=== PATIENT | female | born 1990 | race Caucasian/White ===

== ENCOUNTER 2024-04-05 08:41 | Emergency (ER) | payer OTHER, SELFPAY ==
[2024-04-05 08:43] VITALS: BP 112/77
--- NOTE | 2024-04-05 09:23 | ED.GENMED ---
History of Present Illness
<Richa Loredo PA-C - Last Filed: 04/05/24 18:29>
General
Chief Complaint: Throat Problem
Source: patient and family (Mom at bedside)
Exam Limitations: none
Time Seen by Provider: 04/05/24 09:04
Nursing documentation reviewed up to this point in time: agreed with
History of Present Illness
History of Present Illness:
Patient is a 33 year old female presenting to the emergency department for evaluation of painful swallowing.. Patient states that last Thursday she started with a sore throat and intermittent fevers. She was seen in an urgent care this past
Thursday where she had both a negative COVID and strep test and started on oral prednisone. Sore throat has mainly improved but starting on Thursday she began with a burning sensation in her esophagus with swallowing. Patient does report that she
only notices this pain when she is swallowing and not at rest. Patient states that this has been associated with intermittent nausea but no vomiting. Patient stopped taking the prednisone due to the chest discomfort.
Patient denies any associated headache, neck pain, or abdominal pain. Patient states that she has been unable to eat or drink much over the past few days due to the discomfort. Patient denies any fevers or chills.
Review of Systems
<Richa Loredo PA-C - Last Filed: 04/05/24 18:29>
Review of Systems
Allergies reviewed?: Yes
All Other Systems: ROS reviewed and negative except as documented in HPI and ROS
Phy Exam
<Richa Loredo PA-C - Last Filed: 04/05/24 18:29>
Physical Exam
Physical Exam:
Vitals: Patient's vital signs are stable. Afebrile
General: Patient is well appearing, no acute distress. Nontoxic appearing
Skin: Warm and dry, no rashes or lesions
Head: Normocephalic, atraumatic
Eyes: Sclera nonicteric. EOMs intact. No nystagmus.
Throat: Posterior pharynx mildly erythematous without any tonsillar edema or exudates. Uvula midline. Protecting airway. Speech normal.
Neck: Palpable mobile cervical lymphadenopathy. Normal ROM, no cervical spine tenderness, no meningismus. No tenderness to neck. No crepitus
Cardiac: Regular rate and rhythm, no murmurs.
Pulm: Normal respiratory effort, no wheezes, rales, rhonchi heard on exam.
Abdomen: Abdomen soft. No abdominal tenderness.
Extremities: No evidence of cyanosis or edema. Great distal pulses
Neuro: AAOx3. CN II-XII intact. No focal neurologic deficits.
Psychiatric: Normal affect.
Course
<Richa Loredo PA-C - Last Filed: 04/05/24 18:29>
Orders/Labs/Results
Orders:
Orders
04/05/24 09:34
0.9% Sodium Chloride 1000 ml [Nss] 1,000 ml IV BOLUS
Ketorolac [Toradol] 15 mg IV NOW STA
Ondansetron Injectable [Zofran] 4 mg IV NOW STA
04/05/24 09:35
Test Result ONCE
04/05/24 09:36
CR Chest - 2 Views Urgent
Comment:
Reason For Exam: dysphagia
04/05/24 09:53
Throat Culture [Throat Culture, Comprehensive] Urgent
KAMILAH Source: Throat/Pharynx
Specimen Description:
Date Specimen was Collected: 04/05/24
Time Specimen was Collected: 09:39
04/05/24 09:57
Complete Blood Count/With Diff Urgent
Comprehensive Metabolic Panel Urgent
HCG, Serum Qualitative Screen Urgent
Monotest Urgent
04/05/24 11:20
0.9% Sodium Chloride 1000 ml [Nss] 1,000 ml IV BOLUS
Dexamethasone Sod Phosphate [Decadron] 10 mg IV NOW STA
Pantoprazole [Protonix IV] 40 mg IV NOW STA
Abnormal Lab Results
04/05/24
09:57
WBC 4.0 L 10^3/uL
(4.8-10.8)
MCH 31.4 H pg
(27.0-31.0)
ALT 38 H U/L
(0-35)
Alkaline Phosphatase 32 L U/L
(38-126)
04/05/24 09:57
04/05/24 09:57
Vital Signs
Initial and Last Documented VS:
Initial Vital Signs
Temp Pulse Resp BP Pulse Ox
98.9 F 85 18 112/77 100
04/05/24 08:43 04/05/24 08:43 04/05/24 08:43 04/05/24 08:43 04/05/24 08:43
Last Documented Vital Signs
Temp Pulse Resp BP Pulse Ox
98.9 F 85 18 125/81 100
04/05/24 08:43 04/05/24 08:43 04/05/24 08:43 04/05/24 12:00 04/05/24 12:00
<Ruddy Bolivar MD - Last Filed: 04/06/24 13:26>
Orders/Labs/Results
Orders:
Orders
04/05/24 09:34
0.9% Sodium Chloride 1000 ml [Nss] 1,000 ml IV BOLUS
Ketorolac [Toradol] 15 mg IV NOW STA
Ondansetron Injectable [Zofran] 4 mg IV NOW STA
04/05/24 09:35
Test Result ONCE
04/05/24 09:36
CR Chest - 2 Views Urgent
Comment:
Reason For Exam: dysphagia
04/05/24 09:53
Throat Culture [Throat Culture, Comprehensive] Urgent
KAMILAH Source: Throat/Pharynx
Specimen Description:
Date Specimen was Collected: 04/05/24
Time Specimen was Collected: 09:39
04/05/24 09:57
Complete Blood Count/With Diff Urgent
Comprehensive Metabolic Panel Urgent
HCG, Serum Qualitative Screen Urgent
Monotest Urgent
04/05/24 11:20
0.9% Sodium Chloride 1000 ml [Nss] 1,000 ml IV BOLUS
Dexamethasone Sod Phosphate [Decadron] 10 mg IV NOW STA
Pantoprazole [Protonix IV] 40 mg IV NOW STA
Abnormal Lab Results
04/05/24
09:57
WBC 4.0 L 10^3/uL
(4.8-10.8)
MCH 31.4 H pg
(27.0-31.0)
ALT 38 H U/L
(0-35)
Alkaline Phosphatase 32 L U/L
(38-126)
04/05/24 09:57
04/05/24 09:57
Vital Signs
Initial and Last Documented VS:
Initial Vital Signs
Temp Pulse Resp BP Pulse Ox
98.9 F 85 18 112/77 100
04/05/24 08:43 04/05/24 08:43 04/05/24 08:43 04/05/24 08:43 04/05/24 08:43
Last Documented Vital Signs
Temp Pulse Resp BP Pulse Ox
98.9 F 85 18 125/81 100
04/05/24 08:43 04/05/24 08:43 04/05/24 08:43 04/05/24 12:00 04/05/24 12:00
<Richa Loredo PA-C - Last Filed: 04/05/24 18:29>
MDM/Problems Addressed
Differential Diagnosis Includes:
Not limited to: pharyngitis, GERD, esophagitis, gastritis, thrush, mono, epiglottitis
MDM/Problems Addressed:
33-year-old female presenting with a few days of throat discomfort. Has had negative COVID, strep test in urgent care. Throat pain has mainly resolved but now reporting odynophagia and a burning sensation in her esophagus with swallowing. Reports
very little oral intake over the past few days due to pain was given PPI/Carafate with little improvement. Multiple ER visits over the past few days for similar symptoms. No fever, chills. No chest pain, shortness of breath. Vital signs are
stable. Patient is afebrile. Physical exam as above. Patient is relatively well-appearing, nontoxic appearing. Posterior pharynx mildly erythematous not any tonsillar edema or exudates. She has no pain to her anterior neck or crepitus. Will
check basic labs, mono. Will send throat culture. Will check chest x-ray. Given lack of oral intake over the past 2 days�will give IV fluids, Toradol, Zofran. Will closely monitor and reassess
Labs noted. Mild leukopenia 4.0 suggesting possible viral illness.. No other clinically significant abnormalities. Monotest is negative. Chest x-ray shows no acute cardiopulmonary process. Patient feeling better after first liter of fluids.
Will give second liter and 10 mg IV Decadron.
Into reassess patient. Symptoms definitely improved from arrival. She still does have burning with swallowing although patient is tolerating oral intake. Work appears been essentially negative. Seems like likely viral illness causing initial
onset of symptoms. May be esophagitis/gastritis causing chest discomfort. Will plan to discharge patient with instructions to stay well-hydrated, eat soft foods. Recommend to continue with PPI/Carafate. Did send message to GI first front ventilator to
expedite follow-up for possible endoscopy. Patient and patient's mom comfortable with plan.
Chronic conditions affecting care:
N/A
Acute Exacerbation and/or Progression of Chronic Illness:
N/A
<Richa Loredo PA-C - Last Filed: 04/05/24 18:29>
*Radiology
Radiology exam reviewed: preliminary read by ED provider and radiology read reviewed
*Pulse Oximetry
Patient hypoxic: no
*EKG
Interpreted by ED Provider?: NA
*[employer] Interpretation
Rate: [employer]- N/A
*Critical Care Note
Total Time (30-74mins, 75-104mins- exclusive of procedures): Not Applicable
ED Attending Note
<Richa Loredo PA-C - Last Filed: 04/05/24 18:29>
-
Portions of this chart may have been created with voice recognition software.� Occasional wrong word or��sound alike� substitutions may have occurred due to the inherent limitations of voice recognition software.
<Ruddy Bolivar MD - Last Filed: 04/06/24 13:26>
ED Attending Note
Patient seen and examined by attending physician: Yes
ED Attending Note:
Patient without any significant past med history, presents to ED secondary to throat pain, especially when swallowing with decreased appetite and low-grade fever. Patient states that her symptoms started 1 week ago with a sore throat. She was
evaluated at urgent care center and was prescribed prednisone, with negative strep test. Since then, sore throat has improved, but her other symptoms have continued, including 1 episode of loose bowel movement this morning. Denies coughing.
Denies change in voice. Denies throat swelling sensation. Denies abdominal pain. Denies sick contact. Denies recent travel. Denies smoking. Patient drinks alcohol socially. Denies previous history of similar symptoms.
Physical Exam
General: mild distress, not acutely ill. afebrile
Head: nc/at. eomi
Neck: supple. no meningeal signs. normal posterior pharynx
Heart: s1/s2 regular rate and rhythm, no murmur. equal radial pulses.
Lungs: no acute respiratory distress. clear bilaterally
Abdomen: normal bowel sounds. not tender.
Neuro: alert and oriented. no focal neurological deficits
Skin: no rash
Psychiatric: well kept. interactive and cooperative
Extremities: no edema. no calf tenderness.
Pt with an unremarkable workup in ED and remains hemodynamically stable prolonged course of observation in ED. Pt reports sig improvement in symptoms after iv hydration along with meds. Pt with likely ongoing viral illness. Pt will be discharged
home in stable condition, to the care of her mother, with recommendation to f/u with PCP with any further concerns.
Discharge Plan
Departure
Patient Disposition: Home (Routine Discharge)
Date of Disposition: 04/05/24
Time of Disposition: 12:47
Patient with high blood pressure during this ER visit?: No
Discharge Problem:
Odynophagia, Sore throat
Instructions: Sore Throat, Adult (DC), Esophagitis, Dysphagia (DC)
Prescriptions:
New
ondansetron 4 mg tablet,disintegrating
4 mg PO Q8H PRN (Reason: nausea and vomiting) Qty: 10 0RF
Referrals:
Radhames Jordan MD [Active] - Next open appointment
NONE,* [Family Provider] -
Activity Restrictions/Additional Instructions:
RETURN TO THE EMERGENCY DEPARTMENT WITH ANY FEVERS, CHILLS, SEVERE CHEST PAIN/ABDOMINAL PAIN, SHORTNESS OF BREATH, INABILITY TO SWALLOW, COUGHING UP BLOOD, WORSENING IN CURRENT SYMPTOMS, OR ANY OTHER CONCERNS
-As discussed�we are unsure of the exact cause of your symptoms today. You should continue to stay well-hydrated, eat soft foods. Take Tylenol as needed for any discomfort. I recommend you avoid NSAIDs including Advil, Motrin, ibuprofen as it may
further irritate your stomach.
-You should continue to take your omeprazole and Carafate as prescribed.
-As discussed�you should follow-up with GI for further evaluation/management. You may require an endoscopy procedure for further visualization. I will send your information to the GI crew scheduler to hopefully get you an expedited appointment.
-Monitor your symptoms closely return with any acute worsening/change in symptoms.
Interventions
Interventions:
*Risk Screen - Suicide Last Done: 04/05/24 11:27
*Neglect/Abuse Screening Last Done: 04/05/24 11:27
ED- Fall Risk Assessment Last Done: 04/05/24 12:00
*ED COVID-19 Vaccine History Last Done: 04/05/24 08:43
*Nursing Disposition Last Done: 04/05/24 13:06
ED-EENT Assessment Last Done: 04/05/24 09:01
ED- Pulmonary Assessment Last Done: 04/05/24 09:00
Discharge Date and Time
Discharge Date/Time: 04/05/24 13:07
Print Language: GREENLANDIC
[2024-04-05] MEDS: NSS 1000 IV ×2 (10:03→11:27)
[2024-04-05 10:10] LABS: % Basophils 0.8 % (0-2); % Eosinophils 0.8 % (0-6); % Immature Granulocytes 0.3 % (0-0.5); % Lymphocytes 39.6 % (20.5-51.1); % Monocytes 9.3 % (1.7-9.3); % Neutrophils 49.2 % (42.2-75.2); Absolute Lymphocytes 1.6 10^3/uL (1.2-3.4); Absolute Monocytes 0.4 10^3/uL (0.1-0.6); Hematocrit 38.4 % (37.0-47.0); Hemoglobin 13.4 g/dL (12.0-16.0); Mean Corp Hgb Conc. 34.9 g/dL (33.0-37.0); Mean Corpuscular Hgb 31.4 pg (27.0-31.0); Mean Corpuscular Volume 89.9 fL (81.0-99.0); Mean Platelet Volume 10.1 fL (7.4-10.4); Nucleated Red Blood Cells % 0 %; Platelet Count 178 10^3/uL (130-400); Red Blood Cell Count 4.27 10^6/uL (4.20-5.40)
[2024-04-05] MEDS: ZOFRAN 4 MG IV (10:11)
[2024-04-05] MEDS: TORADOL 15 MG IV (10:11)
[2024-04-05 10:21] LABS: HCG, Serum Qualitative Screen Negative
[2024-04-05 10:23] LABS: ALT (SGPT) 38 U/L (0-35); AST (SGOT) 35 U/L (14-36); Albumin 4.2 g/dl (3.5-5.0); Alkaline Phosphatase 32 U/L (38-126); Blood Urea Nitrogen 12 mg/dl (7-17); Calcium 9.5 mg/dl (8.4-10.2); Carbon Dioxide 22 mmol/L (22-30); Chloride 105 mmol/L (98-107); Glucose 94 mg/dl (70-99); Potassium 4.1 mmol/L (3.5-5.1); Sodium 136 mmol/L (135-145); Total Bilirubin 0.5 mg/dl (0.2-1.3); Total Protein 7.5 g/dl (6.3-8.2); eGFR > 60.00
[2024-04-05 11:23] VITALS: BP 125/76
[2024-04-05] MEDS: DECADRON 10 MG IV (11:27)
[2024-04-05] MEDS: PROTONIX IV 40 MG IV (11:27)
[2024-04-05 11:31] LABS: Monotest Negative (Negative)
[2024-04-05 12:00] VITALS: BP 125/81
== END 2024-04-05 13:07 | disposition home or self-care (01) ==
LOC: EMR 08:41
PROVIDERS: Physician Assistant; EMERGENCY PHYSICIAN Emergency Medicine
DX: J02.9 Acute pharyngitis, unspecified (principal); R13.10 Dysphagia, unspecified; R50.9 Fever, unspecified; R07.89 Other chest pain; R19.7 Diarrhea, unspecified; R59.0 Localized enlarged lymph nodes; J45.909 Unspecified asthma, uncomplicated; K21.9 Gastro-esophageal reflux disease without esophagitis; Z91.048 Other nonmedicinal substance allergy status
CPT/HCPCS: 99284; 96374; 96375 ×3; 96361 ×2; 71046; 80053; 84703; 85025; 86308; 87070